=== PATIENT | male | born 1980 | race Caucasian/White ===

== ENCOUNTER → 2017-03-25 | Outpatient (CLI) | payer BC ==
--- NOTE | ~2017-03-25 | MR43 ---
[facility]. [facility] A Service of [facility] & [facility] RADIOLOGY TEXT RESULTS PATIENT: NEISHA WALTERS LOCATION: [facility] : [birth year] UNIT #: [id number] AGE: [address]: Puma Ortega IV, MD SEX: M ORDER DR: [id number] [address] [address] [id number] O MR#: [id number] Acc #: [id number] NAME: NEISHA WALTERS : 1980 SEX: M STUDY DATE/TIME: 03/25/2017 14:43 UNIT: [facility] ROOM: STUDY DESCRIPTION: MR Elbow Wo Contrast Rt Attending Physician: Puma Ortega M.D. Referring Physician: Puma Ortega M.D. Ordering Physician: Puma Ortega M.D. Primary Care Physician: Generic Doctor Not In System MRI CENTER REPORT This report is preliminary unless electronic signature is present. EXAM MRI right elbow, 03/25/2017 COMPARISON Right elbow radiographs, 03/17/2017. HISTORY Order states right elbow calcific tendinitis, decreased range of motion, pain. History sheet states right elbow pain for 2 years with limited range of motion. No known injury. No surgery. Steroid injections. No related injury or surgery. Pain for 2 years with limited range of motion. FINDINGS There is no effusion, chondral/osteochondral lesion, or loose body. The ulnar collateral ligament and flexor-pronator complex medially are within normal limits. There is minimal common extensor tendinosis without a tear of the lateral epicondyle. The lateral collateral ligament complex is normal. Biceps and brachialis tendons are intact. There is minimal insertional triceps tendinosis involving the distal 1.0-2.0 cm of the tendon with minimal peritendinous inflammation. An olecranon enthesophyte is present posteriorly with surrounding mild inflammation. There is no olecranon bursal fluid. The ulnar nerve and cubital tunnel are normal. Neurovascular bundles are normal. There is no muscle atrophy. No bony abnormalities are noted. IMPRESSION 1. Mild pre-insertional triceps tendinosis with mild peritendinous STS. [facility] A Service of [facility] & [facility] RADIOLOGY TEXT RESULTS PATIENT: NEISHA WALTERS LOCATION: [facility] : 82 UNIT #: [id number] AGE: [address]: Puma Ortega IV, MD SEX: M ORDER DR: inflammation. There is also a posterior olecranon enthesophyte as noted radiographically with surrounding mild inflammation. There is no olecranon bursal fluid or triceps tendon tear. 2. Minimal common extensor tendinosis. 1. Dictated by... Maura Bailey M.D. THIS IS AN ELECTRONICALLY VERIFIED REPORT Maura Bailey M.D. at 03/27/2017 8:02 AM AMANDA/gracie TD: 03/26/2017 14:48 JOB #: [id number] MRI CENTER REPORT Page 1 of 1
== END | disposition home or self-care (01) ==
LOC: SMRI 03-24 11:45
DX: M65.28 Calcific tendinitis, other site (principal)
CPT/HCPCS: 73221